=== PATIENT | female | born 1960 | race Asian ===

== ENCOUNTER 2023-10-10 05:50 | Inpatient (IN) | payer OTHER, MEDICARE ==
[~2023-10-10] VITALS: Ht 152.4 cm; Wt 47.6 kg
[2023-10-10 05:53] VITALS: BP_SYST 145; PULSE 80; RESP 17; TEMP 98; O2SAT 98
[2023-10-10] MEDS ORDERED: ASPIRIN 81 MG TAB.CHEW PO ONE (06:15)
[2023-10-10 06:19] LABS: BASOPHILS % (AUTO) 0.3 % (0.0-2.0); EOSINOPHILS # (AUTO) 0.1 K/uL (0.0-0.4); EOSINOPHILS % (AUTO) 1.2 % (0.0-4.0); HEMATOCRIT 39.9 % (36-48); HEMOGLOBIN 13.5 g/dL (12.0-16.0); LYMPHOCYTES # (AUTO) 1.7 K/uL (1.0-5.5); LYMPHOCYTES % (AUTO) 37.9 % (20.5-51.5); MEAN CORPUSCULAR HEMOGLOBIN 32 pg (27-31); MEAN CORPUSCULAR HGB CONC 34 % (32-36); MEAN CORPUSCULAR VOLUME 95 fL (79.0-98.0); MONOCYTES # (AUTO) 0.3 K/uL (0.0-1.0); MONOCYTES % (AUTO) 7.6 % (1.7-9.3); NEUTROPHILS # (AUTO) 2.4 K/uL (1.8-7.7); PLATELET COUNT (AUTO) 176 K/uL (130-430); RED BLOOD CELL COUNT(AUTO) 4.21 MIL/uL (4.2-6.2); RED CELL DISTRIBUTION WIDTH 12.9 % (9.0-15.0); WHITE BLOOD COUNT (AUTO) 4.5 K/uL (4.8-10.8)
[2023-10-10] MEDS ORDERED: ACETAMINOPHEN 325 MG TABLET PO ONE (06:30)
[2023-10-10] MEDS ORDERED: NITROGLYCERIN 0.4 MG TAB.SUBL SL ONE (06:30)
[2023-10-10] MEDS ORDERED: NITROGLYCERIN 1 INCH (GM) OINT. TP ONE (06:30)
[2023-10-10 06:34] LABS: ANION GAP 10 (5-15); CALCIUM 8.7 mg/dL (8.4-11.0); CARBON DIOXIDE 28 mmol/L (23-29); CHLORIDE 105 mmol/L (98-107); CREATININE 0.72 mg/dL (0.55-1.30); GFR AFRICAN AMERICAN 105 mL/min (>90); GLUCOSE 96 mg/dL (74-106); POTASSIUM 3.7 mmol/L (3.5-5.1); SODIUM SERUM 143 mmol/L (136-145); UREA NITROGEN, BLOOD 13 mg/dL (8-21)
[2023-10-10 06:37] LABS: GFR NON AFRICAN-AMERICAN 86 mL/min (>90)
[2023-10-10] MEDS ORDERED: NIRM1TAB5 PO (07:45)
[2023-10-10] MEDS ORDERED: ACETAMINOPHEN 325 MG TABLET PO PRN (09:45)
[2023-10-10 11:50] VITALS: BP_SYST 126; PULSE 75; RESP 18; TEMP 98.6; O2SAT 96
[2023-10-10] MEDS ORDERED: RITONAVIR PO SCH (13:00)
[2023-10-10] MEDS ORDERED: [UNRECOGNIZED DRUG - OTHER] PO SCH (13:00)
[2023-10-10] MEDS ORDERED: NIRMATRELVIR PO SCH (13:00)
[2023-10-10] MEDS ORDERED: MAGNESIUM OXIDE 400 MG TABLET PO ONE (13:15)
[2023-10-10] MEDS ORDERED: ENOXAPARIN SODIUM 40 MG/0.4 ML SYRINGE SUBCUT ONE (13:15)
[2023-10-10] MEDS ORDERED: ASCORBIC ACID 500 MG TABLET PO ONE (13:15)
[2023-10-10] MEDS ORDERED: CHOLECALCIFEROL (VITAMIN D3) 2,000 UNIT TABLET PO ONE (13:15)
[2023-10-10 16:00] VITALS: BP_SYST 127; PULSE 76; RESP 19; TEMP 98.4; O2SAT 98
[2023-10-10 16:32] LABS: BILIRUBIN,URINE NEGATIVE (NEGATIVE); BLOOD, URINE NEGATIVE (NEGATIVE); CLARITY/URINE CLEAR (CLEAR); COLOR,URINE YELLOW (YELLOW); GLUCOSE,URINE NEGATIVE (NEGATIVE); KETONES,URINE TRACE (NEGATIVE); LEUKOCYTE ESTERASE ,URINE NEGATIVE (NEGATIVE); NITRITE, URINE NEGATIVE (NEGATIVE); PROTEIN URINE NEGATIVE (NEGATIVE); UROBILINOGEN,URINE 0.2 (0.2-1.0)
[2023-10-10 20:00] VITALS: BP_SYST 140; PULSE 83; RESP 18; TEMP 98.2
[2023-10-10] MEDS: ASCORBIC ACID 500 MG TABLET PO SCH (21:56)
[2023-10-10] MEDS: MAGNESIUM OXIDE 400 MG TABLET PO SCH (21:57)
[2023-10-10] MEDS: PAXLOVID PO SCH (21:57)
[2023-10-10] MEDS: ENOXAPARIN SODIUM 40 MG/0.4 ML SYRINGE SUBCUT SCH (21:58)
[2023-10-11 00:02] VITALS: BP_SYST 137; PULSE 79; RESP 18; TEMP 98.4; O2SAT 100
[2023-10-11 05:12] LABS: BASOPHILS % (AUTO) 0.6 % (0.0-2.0); EOSINOPHILS # (AUTO) 0.1 K/uL (0.0-0.4); EOSINOPHILS % (AUTO) 2.2 % (0.0-4.0); HEMATOCRIT 37.8 % (36-48); HEMOGLOBIN 12.8 g/dL (12.0-16.0); LYMPHOCYTES # (AUTO) 2.1 K/uL (1.0-5.5); LYMPHOCYTES % (AUTO) 61.6 % (20.5-51.5); MEAN CORPUSCULAR HEMOGLOBIN 32 pg (27-31); MEAN CORPUSCULAR HGB CONC 34 % (32-36); MEAN CORPUSCULAR VOLUME 95 fL (79.0-98.0); MONOCYTES # (AUTO) 0.3 K/uL (0.0-1.0); MONOCYTES % (AUTO) 7.7 % (1.7-9.3); NEUTROPHILS % (AUTO) 27.9 % (40.0-70.0); PLATELET COUNT (AUTO) 179 K/uL (130-430); RED CELL DISTRIBUTION WIDTH 12.8 % (9.0-15.0); WHITE BLOOD COUNT (AUTO) 3.5 K/uL (4.8-10.8)
[2023-10-11 05:15] LABS: ANION GAP 8 (5-15); CALCIUM 9.2 mg/dL (8.4-11.0); CARBON DIOXIDE 30 mmol/L (23-29); CHLORIDE 108 mmol/L (98-107); CREATININE 0.79 mg/dL (0.55-1.30); GFR AFRICAN AMERICAN 94 mL/min (>90); GLUCOSE 101 mg/dL (74-106); POTASSIUM 4.2 mmol/L (3.5-5.1); SODIUM SERUM 146 mmol/L (136-145); UREA NITROGEN, BLOOD 22 mg/dL (8-21)
[2023-10-11 05:24] LABS: ALANINE AMINOTRANSFERASE 18 U/L (12-78); ALBUMIN 3.4 g/dL (3.4-4.8); ASPARTATE AMINOTRANSFERASE 18 U/L (10-37); CHOLESTEROL 197 mg/dL (<200); FREE T4 (FREE THYROXINE) 1.4 ng/dL (0.6-1.6); HDL CHOLESTEROL 70 mg/dL (>55); TOTAL BILIRUBIN 0.4 mg/dL (0.0-1.0); TOTAL PROTEIN, SERUM 7.1 g/dL (6.4-8.3); TRIGLYCERIDES 79 mg/dL (30-150)
[2023-10-11 06:07] LABS: GFR NON AFRICAN-AMERICAN 78 mL/min (>90)
[2023-10-11 08:25] VITALS: BP_SYST 140; PULSE 78; RESP 16; TEMP 98.1; O2SAT 93
[2023-10-11] MEDS: MAGNESIUM OXIDE 400 MG TABLET PO SCH (08:39)
[2023-10-11] MEDS: ENOXAPARIN SODIUM 40 MG/0.4 ML SYRINGE SUBCUT SCH (08:39)
[2023-10-11] MEDS: ASCORBIC ACID 500 MG TABLET PO SCH (08:39)
[2023-10-11] MEDS: PAXLOVID PO SCH (08:39)
[2023-10-11] MEDS ORDERED: CHOLECALCIFEROL (VITAMIN D3) 2,000 UNIT TABLET PO SCH (09:00)
[2023-10-11] MEDS ORDERED: ASC500 PO (17:39)
[2023-10-11] MEDS ORDERED: Zinc Sulfate PO (17:40)
[2023-10-11] MEDS ORDERED: VITD2000 PO (17:40)
[2023-10-11] MEDS ORDERED: MAGN400T10 PO (17:40)
[2023-10-11 18:03] VITALS: BP_SYST 143; PULSE 86; RESP 16; TEMP 98.5; O2SAT 99
== END 2023-10-11 19:04 | disposition home or self-care (01) | DRG 313 ==
LOC: SED 05:50 → STU 07:49 → SMU 10-11 17:48
PROVIDERS: ADMIT Internal Medicine; ATTEND Internal Medicine
DX: R07.89 Other chest pain (principal); U07.1 COVID-19
CPT/HCPCS: 36415; 71045; 80048; 80053; 80061; 81001; 81003; 83880; 84439; 84484; 85025; 85379; 85730-TC; 93005; 93306; 99285; G0378; J1650